=== PATIENT | female | born 1995 | race Hispanic/Latino ===

== ENCOUNTER → 2020-11-05 12:17 | Outpatient (CLI) | payer OTHER, SELFPAY ==
--- NOTE | 2020-11-05 13:08 | DI.US.S_ITS ---
PROCEDURE: US OB LIMITED INDICATIONS: GDM; EFW, GUILHERME OUTSIDE/PRIOR DATING DATA: Last menstrual period (LMP): 02/07/2020. LMP-based estimated date of delivery (KARLA): 11/14/2020. First dating scan (date and location): 11/05/2020 at [facility]. Estimated date of delivery (KARLA) from first dating scan: 11/18/2020. TECHNIQUE: Real-time scanning was performed of the fetus, with image documentation and biometric measurements. Endovaginal scanning: Not performed. COMPARISON: None. FINDINGS: General: A single living intrauterine gestation is present. Presentation: Vertex Placenta: Placental position is right fundal, without previa. Amniotic fluid index: 12.2 cm, normal range is 5-24 cm. Largest pocket 5.4 cm. heart rate: 149 beats per minute. Maternal cervical canal: Not visualized. biometrics: Biparietal diameter: 9.0 cm, 36 weeks 4 days Head circumference: 33.4 cm, 38 weeks 1 day Abdominal circumference: 35.0 cm, 39 weeks 0 days Femur length: 7.6 cm, 38 weeks 5 days Estimated gestational age from LMP: 38 weeks 6 days. Composite gestational age from present scan: 38 weeks 1 day Estimated weight and percentile: 3510 grams, 59th percentile Measurement variability for biometric dating: +/- 7 days from 14 weeks to 15 weeks 6 days gestation, +/- 10 days from 16 weeks to 21 weeks 6 days gestation, +/- 2 weeks from 22 weeks to 27 weeks 6 days gestation, +/- 3 weeks for 28 weeks gestation or later. weight reference: 4500 g or EFW >90/95% is considered macrosomia or large for gestational age. EFW <10% is small for gestational age. EFW 5% or less is considered intra-uterine growth restriction. Other: Not applicable. IMPRESSION: 1. Single live intrauterine . 2. Estimated weight 3510 grams 3. GUILHERME 12.2 cm, largest pocket 5.4 cm. Dictated by: Darrel Martinez M.D. on 11/05/2020 at 15:00 Approved by: Darrel Martinez M.D. on 11/05/2020 at 15:05
--- NOTE | 2020-11-05 14:19 | PM.OBTRLD ---
Visit Information Visit Information Date of evaluation: 11/05/20 Primary OB Provider: Nedra Mckeon Reason for Evaluation: Yes non-stress test non-stress test reason: diabetes Vital Signs Vital Signs: Temperature 36.3? blood pressure 117/64 heart rate 90 PFSH Medical History Asthma Gestational diabetes mellitus (GDM) affecting third (~03/2020) Rash/skin eruption (~2017) Family History Mother No problems noted. Father No problems noted. Grandmother No problems noted. Grandfather No problems noted. Grandmother No problems noted. Grandfather No problems noted. Social History marital status: number of children: 2 household members: spouse and children lives independently: Yes caregiver/support person: No housing: house pets and animals: Yes (2 dogs: safe. 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 ) Type(s) of exercise: walking and normal ROM and activity frequency: daily duration: 15-30 minutes/day Evaluation Evaluation Baseline heart rate: 140 Variability: Moderate (11-25) monitor accelerations: Present Monitor Decelerations: Absent Category of Tracing: Reactive Diagnosis, Plan/Disposition Final Diagnosis (1) 38 weeks gestation of : Status: Acute (2) GDM, class A1: Status: Acute Plan/Disposition Plan: 25-year-old at 38 weeks and 5 days with GDM A1. complicated by late transfer of care. NST reactive today. Ultrasound shows normal-sized fetus as well as normal fluid. She will follow-up in clinic next week. OB Disposition: home
[2020-11-06 13:19] LABS: Strep Grp B PCR NEG for Grp B Strep
== END ==
LOC: LAB 12:17 → LABOR 13:44 → LAB 02-16 00:07
PROVIDERS: PCP Student in an Organized Health Care Education/Training Program; Referring Provider Family Medicine; Visit Provider Family Medicine
DX: O24.410 Gestational diabetes mellitus in pregnancy, diet controlled (principal)
CPT/HCPCS: 59025; 76815; 87653; G0378

== ENCOUNTER 2020-11-08 22:50 | Inpatient (IN) | payer OTHER, SELFPAY ==
[2020-11-08 22:55] VITALS: BP 119/63
[2020-11-09 04:58] LABS: Add Manual Diff / Slide Review NO; Basophils Absolute Auto 0 /uL (0-100); Basophils Percent Auto 0.3 % (0-2); Eosinophils Absolute Auto 100 /uL (0-450); Eosinophils Percent Auto 1.1 % (2-4); Hemoglobin 10.5 g/dL (12.0-16.0); Lymphocytes Absolute Auto 3000 /uL (1100-4500); Lymphocytes Percent Auto 29.3 % (25-40); Mean Corpuscular HGB Conc 31.7 % (30-36); Mean Corpuscular Volume 69.5 fL (80-100); Monocytes Absolute Auto 700 /uL (0-900); Monocytes Percent Auto 6.7 % (3-14); Neutrophils Absolute Auto 6500 /uL (1500-7000); Neutrophils Percent Auto 62.6 % (50-75); Platelet Count 253 X10^3/uL (150-400); Red Blood Cell Count 4.75 X10^6/uL (4.0-5.2); Red Cell Distribution Width 17.4 % (11.6-14.8); White Blood Cell Count 10.4 X10^3/uL (4.5-11.0)
[2020-11-09 05:20] LABS: Anisocytosis 1+; Microcytosis 2+; Polychromasia 1+
[2020-11-09 05:28] LABS: COVID19 - ADMIT (NP swab/PCR) Negative (Negative)
--- NOTE | 2020-11-09 07:40 | P.HPOB_ITS ---
OB HPI Date/Time Date of admission: 11/08/20 Date Patient Seen: 11/09/20 Time Patient Seen: 07:30 History of Present Condition Chief complaint: Leaking : 4 Para: 2 Estimated Date of Delivery: 11/14/20 Estimated Gestational Age (weeks): 39w2d Narrative: Emilie Cooney is a 25 year old at 39 weeks and 2 days gestation. She came in overnight due to possible leaking of fluid however AmniSure was negative. She was monitored over several hours and made cervical change. This morning she can feel contractions though are not particularly painful. She would like an epidural prior to rupture membranes. complicated by transfer of care at 38 weeks as well as diet-controlled gestational diabetes. She had a 6 week lapse in care due to moving and staying with family. She has had a couple elevated fasting sugars after eating pasta or pizza, otherwise sugars have been well controlled without medication. Estimated weight on ultrasound last week was 3510 g which is at the 53rd percentile. OB history: 04/01/16 at 37 wks, 5 hr labor, 8 lb 5 oz male, epidural, [facility]. Insulin dependent GDM, induced for oligo. Did not breast feed due to inverted nipples/tongue tie. Jaswinder Cooney. 11/11/16 SAB at 6 wks 06/28/18 at 39 wks, 5 hr labor, 7 lb 4.016 oz, epidural, [place], [place]. Diet controlled GDM. Did not breast feed. Yulia Bernstein. Indications Indication for induction OB: gestational diabetes (advanced dilation) History of Present care: good care (lapse between 32 and 38 weeks due to moving), initiated at week # (9), number of visits (10) and pounds weight gain (17) Dating criteria: LMP confirmed by 1st trimester US Ultrasounds: normal mid trimester US Obstetrical complications: gestational diabetes Preadmission Labs Blood type: A (+) positive -: Antibody screen: negative, GBS status: negative, HBsAG: negative, HIV: negative and RPR/VDLR: negative HCT: 33 PAP: Normal 1 hr GTT: 141 Evaluation Evaluation Baseline heart rate: 130 Variability: Moderate (11-25) monitor accelerations: Present Monitor Decelerations: Absent Contraction Frequency (minutes): 5 Status: Category l Cervical dilation (cm): 7 Cervical effacement (%): 90 station: -1 [facility] Medical History Asthma Gestational diabetes mellitus (GDM) affecting third (~03/2020) Rash/skin eruption (~2017) Family History Mother No problems noted. Father No problems noted. Grandmother No problems noted. Grandfather No problems noted. Grandmother No problems noted. Grandfather No problems noted. Social History marital status: number of children: 2 household members: spouse and children lives independently: Yes caregiver/support person: No housing: house pets and animals: Yes (2 dogs: safe. 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 ) Type(s) of exercise: walking and normal ROM and activity frequency: daily duration: 15-30 minutes/day Meds Home Medications and Allergies Home Medications Medication Instructions Recorded Confirmed Type prenat.vits,kenya,dze-[id number] 1 tab PO DAILY 11/04/20 11/05/20 History Allergies Allergy/AdvReac Type Severity Reaction Status Date / Time No Known Drug Allergies Allergy Verified 11/04/20 10:04 Exam Vital Signs (past 8 hours): Temperature 35.9? blood pressure 133/79 heart rate 120 Const General: healthy appearing and comfortable [facility] Head: normal to inspection Ears: hearing grossly normal bilaterally Nose: external nose normal Face and sinus: normal facial exam Mouth: oral mucosae normal Eyes General: appearance normal, both eyes and all related structures Neck Neck: normal visual inspection Resp Effort & Inspection: normal respiratory effort Auscultation: clear to auscultation bilaterally Cardio Rate: regular rate Rhythm: regular rhythm Heart Sounds: no murmurs GI Other: Gravid External Female Exam: normal external appearance Manual OB Exam: dilated 7, effaced (90), station -1 and other (bulging bag) Presentation: vertex Estimated Weight (lbs): 8 Back/Spine/Pelvis Back: normal to inspection Skin General: no rashes or lesions noted Extrem General: normal to inspection and no pedal edema Objective Labs Result Diagrams: 11/09/20 03:50 Labs: Laboratory Results - last 24 hr 11/09/20 11/09/20 11/09/20 03:50 03:50 03:50 WBC 10.4 RBC 4.75 Hgb 10.5 L Hct 33.0 L MCV 69.5 L MCH 22.0 L MCHC 31.7 RDW 17.4 H Plt Count 253 Neut % (Auto) 62.6 Lymph % (Auto) 29.3 [place] % (Auto) 6.7 Eos % (Auto) 1.1 L Baso % (Auto) 0.3 Neut # (Auto) 6500 Lymph # (Auto) 3000 [place] # (Auto) 700 Eos # (Auto) 100 Baso # (Auto) 0 RBC Morphology See below Polychromasia 1+ H Anisocytosis 1+ H Microcytosis 2+ H SARS-CoV-2 (PCR) Negative Blood Type A Positive Antibody Screen Negative Assessment and Plan Assessment and Plan Assessment and Plan narrative: 25-year-old at 39 weeks and 2 days with advanced dilation and a bulging bag but not yet in active labor. complicated by diet-controlled gestational diabetes. GBS negative. Patient requests epidural now. Will perform AROM after epidural is adequate. Anticipate vaginal delivery.
[2020-11-09] MEDS: LACTATED RINGERS 1,000 ML 100 ML IV ×2 (07:44→10:12)
[2020-11-09] MEDS: FENT 2MCG/ML BUPIV 0.125% EPI 200 MCG/100 ML PLAST..BAG 6 MCG EPIDURAL (08:10)
--- NOTE | 2020-11-09 08:48 | PM.AN.REGBLK ---
Regional Block Pre-procedure Procedure: Continuous Lumbar Epidural for L&D Attending OB provider: Nedra Mckeon PMH/ROS narrative: at 39+2 term labor, no complications with except GDM, diet controlled, no significant PMH. ASA Class: II Labs: Hct 33.0 % (36-46) L 11/09/20 03:50 Plt Count 253 X10^3/uL (150-400) 11/09/20 03:50 Medications: Current Medications Generic Name Dose Route Start Last Admin Trade Name Freq PRN Reason Stop Dose Admin Carboprost Tromethamine 250 mcg 11/09/20 04:14 Carboprost 250 Mcg/Ml Ampul IM Q90M PRN Bleeding Diphenhydramine HCl 25 mg 11/09/20 08:47 Diphenhydramine 50 Mg/Ml Vial IV Q10M PRN Pruritis Fentanyl 50 mcg 11/09/20 04:14 Fentanyl 100 Mcg/2 Ml Inj IV Q1H PRN Pain, Moderate (4-6) Lactated Ringer's 1,000 mls @ 100 mls/hr 11/09/20 04:15 11/09/20 07:44 Lactated Ringers IV 100 mls/hr CONT AWILDA Administration Oxytocin/Lactated Ringer's 30 unit in 500 mls @ 200 mls/hr 11/09/20 04:14 Oxytocin Premix IV CONT PRN Bleeding Protocol Tranexamic Acid 1,000 mg/ 100 mls @ 200 mls/hr 11/09/20 04:14 Sodium Chloride IV NOW PRN Bleeding FENT 2MCG/ML BUPIV 0.125% EPI 200 mcg in 100 mls @ 6 mls/hr 11/09/20 09:00 Fentanyl/Bupiv/Ns 2mcg/Ml - 0.125% EPIDURAL CONT AWILDA Methylergonovine Maleate 0.2 mg 11/09/20 04:14 Methylergonovine 0.2 Mg Tablet PO Q6HR PRN Heavy Bleeding Methylergonovine Maleate 0.2 mg 11/09/20 04:14 Methylergonovine 0.2 Mg/Ml Vial IM NOW PRN Bleeding Misoprostol 800 mcg 11/09/20 04:14 Misoprostol 200 Mcg Tablet MI NOW PRN Bleeding Misoprostol 1,000 mcg 11/09/20 04:14 Misoprostol 200 Mcg Tablet MI NOW PRN Bleeding Misoprostol 400 mcg 11/09/20 04:14 Misoprostol 200 Mcg Tablet SL NOW PRN Bleeding Oxytocin 10 unit 11/09/20 04:14 Oxytocin 10 Unit/Ml Vial IM NOW PRN Bleeding Allergies: Allergies Allergy/AdvReac Type Severity Reaction Status Date / Time No Known Drug Allergies Allergy Verified 11/04/20 10:04 Procedure Insertion date: 11/09/20 Insertion time: 08:00 Prep/Local: betadine x3 Interspace: L2-3 Patient position: sitting Needle: 18 gauge [employer] (CSE: 27g [place]enc[place] through [employer], clear CSF, 1mL 0.25% bupiv) Loss of resistance with: saline ARNOLDO at (cm): 5 Catheter placed at SKIN (cm): 10 Catheter in SPACE (cm): 5 Insertion: No CSF, No Blood, No Paresthesia with insertion, No Paresthesia with injection and No Test dose reaction Initial Medications TEST DOSE time: 07:58 BOLUS DOSE time: 08:01 BOLUS DOSE (mL): 3 BOLUS DOSE med: other (infusate) Infusion INFUSION: 0.125% bupivacaine and with fentanyl 2 mcg/mL Initial rate (mL/hr): 6 Post-procedure Anesthesia time START: 07:45 Anesthesia time END: 10:39 Post-procedure Anesthesia Assessment: Yes CV function: HR/BP stable, Yes Resp function: RR/sat/airway adequate, Yes Mental status appropriate and No Anesthesia complications
--- NOTE | 2020-11-09 09:01 | PM.OBPNLAB ---
Date/Time Date Patient Seen: 11/09/20 Pain Control Pain control: tolerating well and epidural Pelvic Exam Dilation (cm): 8 Effacement (%): 90 station: -1 Amniotic membrane status: Ruptured (AROM copious clear fluid) Contractions Contraction frequency (min): 5 Status status: Category l Heart Rate Baseline: 130 Monitor Accelerations: Present Monitor Decelerations: Absent Monitor Variability: Moderate Assessment and Plan Assessment: active labor Plan: continuous present management Comments: AROM with copious clear fluid. Comfortable witih epidural. Anticipate .
--- NOTE | 2020-11-09 10:58 | PM.OBPRVD ---
Events: Gestational Diabetes Labor & Delivery Delivery date: 11/09/20 Delivery augmentation: rupture of membranes Delivery monitor: external FHT Route of delivery: L&D Laceration Description: None Estimated blood loss (mL): 100 Anesthesia Type: Epidural Narrative: 25-year-old at 39 weeks and 2 days gestation. KARLA 11/14/28. Patient presented to the center with leaking of fluid however was AmniSure negative. She was dieudonne though not painfully but with advanced dilation. The decision was made to admit. She received an epidural with excellent pain control. Artificial rupture membranes occurred at 8:55 a.m. with production of copious clear fluid. heart tones were category 1 throughout stage I. Patient was complete at 10:25 a.m.. She pushed over three contractions and went on to deliver a vigorous female infant at 10:39 a.m.. was vertex and KOKO. She was immediately placed on mother's abdomen. Cord was clamped and cut after 1 minute delay. Apgars were 8 and 9. No resuscitation of the required beyond the usual drying and stimulating. Placenta delivered at 10:44 a.m. after active management and appeared intact with a three-vessel cord. Pitocin bolus given after delivery of placenta. Uterine fundus was firm below umbilicus. There were no tears. EBL 100 mL. Both mother and baby doing well. [place] Baby 1: Infant gender: Female Presentation: vertex Position: Left Occiput Anterior Placenta delivery description: Spontaneous Cord Vessel Description: 3 Vessels score (1 min): 8 score (5 min): 9 Plan for aftercare: Routine care
[2020-11-09] MEDS: OXYTOCIN PREMIX 30 UNIT/500 ML PLAST..BAG 200 UNIT IV (12:40)
[2020-11-09] MEDS: ACETAMINOPHEN 325 MG TABLET 650 MG PO ×2 (12:42→18:54)
[2020-11-09] MEDS: IBUPROFEN 600 MG TABLET PO ×2 (12:42→18:54)
--- NOTE | 2020-11-10 07:47 | PM.OBDS.1 ---
Discharge Providers Provider Date of admission: 11/08/20 22:50 Discharge Date: 11/10/20 Primary care physician: Hitesh Vazquez MD Consults: 11/10/20 11:01 Consult to Transportation Associate Routine Comment: Discharge provider: DO Amisha Ward Hospital Course Date Patient Seen: 11/10/20 Time Patient Seen: 07:30 Diagnoses: 39 weeks of Spontaneous vaginal delivery Gestational diabetes Hospital Course: Patient is a 25-year-old now 3 after uncomplicated spontaneous vaginal delivery on 11/09/20 at 39 weeks 2 days gestation. She presented in labor and received an epidural for pain control. Delivery was uncomplicated without lacerations. No issues in the . Patient wished to formula feed. course uncomplicated. Patient was ambulating, voiding, and stooling. Vaginal bleeding was light and pain controlled with ibuprofen. Advised patient to call for fevers, severe pain or bleeding through more than a pad an hour. Follow up in clinic in 6 weeks for visit. Will need 2 hour GTT at that time. [place] 1: Gender: Female Disposition of : home Status at Discharge Cognitive/behavioral status at discharge: at baseline, oriented Functional status at discharge: independent ambulation Overall status at discharge: patient is back to baseline Time Spent with Patient Time attestation: Total time spent providing and/or coordinating discharge services: Time spent: Less than 30 minutes Objective Labs Result Diagrams: 11/09/20 03:50 Exam Vital Signs (past 8 hours): Temperature 98.6 blood pressure 95/57 heart rate 77 respirations 16 General: Awake and alert, no acute distress. HEENT: NCAT, EOMI, moist oral mucosa CV: Regular rate and rhythm, no murmurs, rubs or gallops Lungs: CTAB, no wheezes, rales, or rhonchi Abdomen: Soft, nontender; bowel tones active; uterus firm 1 cm below umbilicus Extremities: Warm, no edema, 2+ pedal pulses bilaterally Discharge Plan Discharge Plan Patient Disposition: Home Discharge orders & Medications Prescriptions: New docusate sodium [DOK] 100 mg Capsule 100 mg PO DAILY Qty: 30 RF: 0 ibuprofen 600 mg Tablet 600 mg PO Q6HR PRN (Reason: Pain, Mild (1-3)) Qty: 30 RF: 0 Continued prenat.vits,kenya,iho-iarp-lcbsu Tablet 1 tab PO DAILY RF: 0 Follow up/Referrals: Hitesh Vazquez DO [Primary Care Provider] - Nedra Mckeon DO [Physician] - 12/21/20 9:30 am (heck in 15 minutes prior to appointment. Call MD with any questions or concerns) Visit Report/Discharge Packet Stand Alone Forms: Discharge: Care Visit Report Forms: Patient Portal/API, Stroke Signs & Symptoms Discharge Data Primary Care Provider: Hitehs Vazquez Discharges patient from system. Discharge Date/Time: 11/10/20 10:40
[2020-11-10 08:12] VITALS: BP 119/63; PULSE 80; RESP 18; TEMP 37
== END 2020-11-10 10:40 | disposition home or self-care (01) | DRG 807 ==
PROVIDERS: Admitting Provider Family Medicine; PCP Student in an Organized Health Care Education/Training Program; Referring Provider Family Medicine; Visit Provider Family Medicine
DX: O24.420 Gestational diabetes mellitus in childbirth, diet controlled (principal); Z37.0 Single live birth; Z3A.39 39 weeks gestation of pregnancy; Z20.822 Contact with and (suspected) exposure to COVID-19
CPT/HCPCS: 01967; 36415; 59050; 59410; 84112; 85025; 86850; 86900; 86901; 87635; C9803; G0379; J2590

== ENCOUNTER → 2022-06-07 11:57 | Outpatient (CLI) | payer OTHER, SELFPAY ==
[2022-06-07 12:55] LABS: Add Manual Diff / Slide Review NO; Basophils Absolute Auto 0 /uL (0-100); Basophils Percent Auto 0.3 % (0-2); Eosinophils Absolute Auto 100 /uL (0-450); Eosinophils Percent Auto 1.9 % (2-4); Hematocrit 32.5 % (36-46); Hemoglobin 10.4 g/dL (12.0-16.0); Lymphocytes Absolute Auto 1600 /uL (1100-4500); Lymphocytes Percent Auto 21.5 % (25-40); Mean Corpuscular Hemoglobin 21.5 PG (26-34); Mean Corpuscular Volume 67.1 fL (80-100); Monocytes Absolute Auto 400 /uL (0-900); Monocytes Percent Auto 5.7 % (3-14); Neutrophils Absolute Auto 5400 /uL (1500-7000); Neutrophils Percent Auto 70.6 % (50-75); Platelet Count 249 X10^3/uL (150-400); Red Blood Cell Count 4.85 X10^6/uL (4.0-5.2); Red Cell Distribution Width 16.9 % (11.6-14.8); White Blood Cell Count 7.7 X10^3/uL (4.5-11.0)
[2022-06-07 13:23] LABS: Anisocytosis 2+
[2022-06-07 13:39] LABS: Hepatitis B Surface Antigen NEGATIVE s/c (NEGATIVE); Rubella Antibody IgG 5.6 IU/mL (>15)
[2022-06-07 13:54] LABS: HIV 1 & 2 Ab/Ag 4th Gen Combo NEGATIVE (NEGATIVE); Hep C Virus Ab w/Reflex Quant NEGATIVE s/c (NEGATIVE)
[2022-06-08 07:34] LABS: Varicella IgG Antibody <135 index (Immune >165)
[2022-06-08 08:10] LABS: RPR Screen Non Reactive (Non Reactive)
== END ==
PROVIDERS: PCP Student in an Organized Health Care Education/Training Program; Referring Provider Obstetrics & Gynecology; Visit Provider Obstetrics & Gynecology
DX: Z34.90 Encounter for supervision of normal pregnancy, unspecified, unspecified trimester (principal)
CPT/HCPCS: 36415; 85025; 86592; 86762; 86787; 86803; 86850; 86900; 86901; 87086; 87340; 87389

== ENCOUNTER → 2022-07-06 14:23 | Outpatient (CLI) | payer OTHER, SELFPAY ==
[2022-07-06 19:59] LABS: Urine N gonorrhoeae NOT DETECTED
[2022-07-06 20:14] LABS: Urine Chlamydia NOT DETECTED
== END ==
PROVIDERS: PCP Student in an Organized Health Care Education/Training Program; Visit Provider Obstetrics & Gynecology
DX: Z36.89 Encounter for other specified antenatal screening (principal); Z3A.18 18 weeks gestation of pregnancy
CPT/HCPCS: 87491; 87591

== ENCOUNTER → 2022-07-27 13:13 | Outpatient (CLI) | payer OTHER, SELFPAY ==
--- NOTE | 2022-07-27 13:15 | DI.US.S_ITS ---
PROCEDURE: US OB >= 14 WEEKS FETUS INDICATIONS: ANATOMY OUTSIDE/PRIOR DATING DATA: Last menstrual period (LMP): 02/28/2022. LMP-based estimated date of delivery (KARLA): 12/05/2022. First dating scan (date and location): 06/07/2022. Estimated date of delivery (KARLA) from first dating scan: 12/03/2022. The calculations are made using the working KARLA of 12/05/2022. TECHNIQUE: Real-time scanning was performed of the fetus, with image documentation and biometric measurements. Endovaginal scanning: Not performed COMPARISON: None. FINDINGS: General: A single living intrauterine gestation is present. Presentation: Breech. Placenta: Placental position is posterior , without previa. Amniotic fluid index: 2.8 cm, normal range is 5-24 cm. Single deepest vertical pocket is 5.6 cm. heart rate: 133 beats per minute. Maternal cervical canal: 5.6 cm long. Normal lower limit is 2.5 cm. biometrics: Biparietal diameter: 4.9 cm, 20 weeks 6 days Head circumference: 18.6 cm, 21 weeks 0 days Abdominal circumference: 16.1 cm, 21 weeks 1 day Femur length: 3.6 cm, 21 weeks 2 days Clinically estimated gestational age: 21 weeks 2 days Composite gestational age from present scan: 21 weeks 1 day Estimated weight and percentile: 405 g, 39th percentile Anatomic survey: Neuro: Ventricles are non-dilated at less than 10 mm. Cisterna magna is normal at 3-11 mm. Cerebellum is normal in size and morphology. Nuchal skin fold: Normal at less than 6 mm between 14-21 weeks gestational age. Nuchal fold measurement is 6 mm. Face: Nose and lips, facial profile are normal. Spine: No evidence for spina bifida. Heart: 4-chambered heart is present, with normal ventricular outflow tracts. Diaphragm: Diaphragm is intact. Stomach: Left-sided stomach is present. Kidneys: No hydronephrosis. Normal is less than 5 mm in 2nd trimester, less than 7 mm in 3rd trimester. Cord: 3-vessel cord has orthotopic insertion. Bladder: Normal in size. Extremities: All 4 extremities identified. IMPRESSION: 1. Living 2nd trimester intrauterine . Current ultrasound age correlates with clinical age based on LMP. 2. There is a 6 mm nuchal fold measurement which is upper limits of normal. This serves as a soft marker for Down syndrome. Recommend correlation with maternal alpha fetoprotein and other potential markers. Of note, there are no other findings on this study which suggest findings consistent with Down syndrome. 3. Otherwise unremarkable 2nd trimester anatomy screening ultrasound. We strive to produce accurate, complete, and clear reports of imaging services. To assist us in improving patient care, this report was composed using standard report templates and voice recognition software. Therefore, it may contain abnormal punctuation, insertions and/or omissions. Occasional wrong-word or sound-alike substitutions may occur. Though we review the report and make efforts to correct it, we do recommend that the report be read carefully in proper context to recognize any text inaccuracies. Dictated by: Prince Hernandez M.D. on 07/27/2022 at 16:08 Approved by: Prince Hernandez M.D. on 07/27/2022 at 16:22
== END ==
PROVIDERS: PCP Student in an Organized Health Care Education/Training Program; Referring Provider Obstetrics & Gynecology; Visit Provider Obstetrics & Gynecology
DX: Z34.82 Encounter for supervision of other normal pregnancy, second trimester (principal); Z3A.21 21 weeks gestation of pregnancy
CPT/HCPCS: 76811

== ENCOUNTER → 2022-09-02 14:03 | Outpatient (CLI) | payer OTHER, SELFPAY ==
[2022-09-02 14:35] LABS: Hematocrit 34.6 % (36-46); Hemoglobin 11.6 g/dL (12.0-16.0)
== END ==
PROVIDERS: PCP Student in an Organized Health Care Education/Training Program; Referring Provider Obstetrics & Gynecology; Visit Provider Obstetrics & Gynecology
DX: Z34.82 Encounter for supervision of other normal pregnancy, second trimester (principal); Z3A.26 26 weeks gestation of pregnancy
CPT/HCPCS: 36415; 85014; 85018

== ENCOUNTER → 2022-09-19 16:12 | Outpatient (CLI) | payer OTHER, SELFPAY | PROVIDERS: PCP Student in an Organized Health Care Education/Training Program; Visit Provider Obstetrics & Gynecology | DX: Z34.90 Encounter for supervision of normal pregnancy, unspecified, unspecified trimester (principal); Z3A.29 29 weeks gestation of pregnancy | CPT/HCPCS: 87086 ==

== ENCOUNTER 2022-11-13 00:42 | Inpatient (IN) | payer OTHER, SELFPAY ==
[2022-11-13 03:24] VITALS: BP 112/68
[2022-11-13 04:18] LABS: Basophils Absolute Auto 100 /uL (0-100); Basophils Percent Auto 0.7 % (0-2); Eosinophils Absolute Auto 200 /uL (0-450); Eosinophils Percent Auto 1.3 % (2-4); Hematocrit 34.7 % (36-46); Hemoglobin 11.1 g/dL (12.0-16.0); Lymphocytes Absolute Auto 4100 /uL (1100-4500); Lymphocytes Percent Auto 28.1 % (25-40); Mean Corpuscular Hemoglobin 22.3 PG (26-34); Mean Corpuscular Volume 69.9 fL (80-100); Monocytes Absolute Auto 900 /uL (0-900); Neutrophils Absolute Auto 9400 /uL (1500-7000); Neutrophils Percent Auto 63.9 % (50-75); Platelet Count 357 X10^3/uL (150-400); Red Blood Cell Count 4.97 X10^6/uL (4.0-5.2); White Blood Cell Count 14.7 X10^3/uL (4.5-11.0)
[2022-11-13 04:19] LABS: Add Manual Diff / Slide Review SLIDE REVIEW
[2022-11-13] MEDS: LACTATED RINGERS 1,000 ML 100 ML IV (04:38)
[2022-11-13 06:00] LABS: Anisocytosis 2+; Microcytosis 3+
[2022-11-13 06:11] LABS: Strep Grp B PCR NEG for Grp B Strep
--- NOTE | 2022-11-13 15:07 | P.PCN_ITS ---
Called at 1915 epidural level low. Bolus with 5 ml clinician bolus and patient comfortable. 0115 called for patient uncomfortable, gave bolus dose of 5 ml of infusion then lidocaine 2% MPF 5 ml with no pain relief. Plan: replace epidural catheter. 0156 Patient sitting, 0157 prep with chloraprep and allowed to dry. 0203 local at L3-4. 0205 catheter threaded after good ARNOLDO at cm again. 0207 test dose negative, catheter secured with sterile tegaderm and tape. Patient positioned and clinician bolus of 5 ml given at 0210 and infusion started at 0211. 0230 3 ml bolus with patient on her right side. 0255 catheter that was threaded 6 cm pulled back 2 cm. Viable baby delivered at 0311. Peripheral Nerve Block Note Pre-Procedure Reason for block: Attending surgeon request/order for post-op pain management (Labor epidural) Pre-procedure checklist: Patient examined and chart reviewed, Risks, benefits, alternatives of block discussed, questions answered, Verification of anti- coagulation status, Site confirmed, Timeout performed and Standard ASA monitors applied Consent obtained from: Patient Procedure Date of procedure: 11/13/22 Start Time: 13:49 End Time: 14:21 Performed by: Kenna Flores Location: Other (Labor room 5) Position: Sitting (Sitting at side of bed and held by her spouse) Sterile Technique: Sterile barrier maintained, Sterile gloves, Mask, Sterile drapes and Chloraprep Skin Wheal: Lidocaine 1% (L4-5 and L2-3 5 ml at lower site and 3 ml at upper site.) mL: 8 Gauge: 27 Equipment Single injection - Needle brand, gauge, length: 18g [employer] Epidural needle 8.9cm Medications Medications - enter concentration (%) & mL in comment field: Bupivacaine (100 ml inusion bag started with 17 ml to flush the line. Bupivicaine 0.1% with fentanyl 2mcg/ml) and Lidocaine (2% 3 ml for bolus dose with fentanyl 100 mcg total 5 ml at 1414) Test Dose: Negative (Lidocaine 1.5% with epinephrine 1:200,000) Incremental aspiration prior to injection: Yes (Negative for CSF or blood) Vital signs VS: VS noted on anesthesia record. 1349 Sterile prep, 1355 local, 1357 procedure started, 1400 more local at first site, 1405 local at L3-4, 1407 ARNOLDO and catheter placed, 1408 test dose, 1414 bolus, 1421 infusion started. Events Nerve Block Events: Multiple attempts required (Patient very anxious and when I touched her skin she would flinch and jump, and at first was unable to hold still. Attempted at L4-5 and redirected times one and patient compained of right sided pain both times, second time had blood in syringe at 5 cm deep. ) and Other (Procedure second attempt at L3-4 easy times one with good ARNOLDO at 6 cm and catheter threaded easily 6 cm and needle removed intact. Negative for aspiration of CSF or blood. Test dose negative. Secured with sterile dressing and tape. Bolus dose at 1414 and infusion pump started 1421. )
--- NOTE | 2022-11-13 16:15 | PM.OBHP.IH.1 ---
OB HPI Date/Time Date of admission: 11/13/22 Date Patient Seen: 11/13/22 Time Patient Seen: 16:15 History of Present Condition Chief complaint: contractions KARLA Calculator Estimated Delivery Date Method Current WG Current Estimate 12/05/22 LMP (Certain) 36w 6d Other Estimates 12/03/22 Ultrasound #1 37w 1d Estimated Gestational Age (weeks): 36+6 : 5 Para: 3 care: good care, initiated at week # (10), number of visits (9) and pounds weight gain (10) Dating criteria OB: LMP confirmed by 1st trimester US Ultrasounds: normal 1st trimester US and abnormal US findings (Increased nuchal fold) Abnormal ultrasound findings: MFM referral, repeat U/S with increased nuchal fold as well Obstetrical complications: other (Checking BS's, no elevated values) Medical complications OB: none Preadmission Labs Last OB Lab Results: Blood Type A Positive 11/13/22 04:00 Antibody Screen Negative 11/13/22 04:00 Hematocrit 34.7 % (36-46) L 11/13/22 04:00 Hemoglobin 11.1 g/dL (12.0-16.0) L 11/13/22 04:00 Hepatitis B Surface Antigen Negative s/c (NEGATIVE) 06/07/22 12:05 Hepatitis C Antibody Negative s/c (NEGATIVE) 06/07/22 12:05 Rubella Antibody 5.6 IU/mL (>15) L 06/07/22 12:05 Varicella-Zoster IgG Antibody <135 index (Immune >165) L 06/07/22 12:05 Group B Streptococcus (PCR) Neg for grp b strep 11/13/22 04:45 -: Chlamydia screen: negative, Gonorrhea screen: negative and Urine: negative -: PAP smear: Normal (2020) External Labs -: Urine: negative Prior (ies) Past Pregnancies Del. Date GA/Weeks Labor Lgth Wt Sex Route Outcome Anesthesia Place Delv Breastfeed Preg Comp Name 04/01/16 37 5 8 lb 5 oz Male vaginal live - full term epidural [facility] 2d.Inverted nipples/tongue-tie gestational diabetes Jaswinder Cooney 11/11/16 6 spontaneous 06/28/18 39 5 7 lb 4.016 oz Female vaginal live - full term epidural [facility] [place], [place] None. gestational diabetes Yulia Day 11/09/20 39+2 2 8 lb 8.2 oz Female vaginal live - full term [facility] [place] 2 weeks gestational diabetes Sol Delivery Date: 04/01/16 Last Updated by: Rae Hurtado R.N. GDM, insulin-dependent. Induction for oligohydramnios. Delivery Date: 06/28/18 Last Updated by: Rae Hurtado R.N. GDM. Diet-controlled. Induced for GDM, no issues. Evaluation Evaluation Baseline heart rate: 135 Variability: Moderate (11-25) monitor accelerations: Present Monitor Decelerations: Absent Contraction Frequency (minutes): 10 Uterine Contraction Intensity: Moderate Status: Category l Dilation (cm): 7.5 Effacement (%): 80 station: -1 Position of cervix: mid Consistency: soft [facility] Medical History (Updated 08/02/22 @ 13:56 by Carmen Hakwins MD) Asthma Gestational diabetes mellitus (GDM) affecting third (~03/2020) Rash/skin eruption (~2017) Surgical History (Updated 05/24/22 @ 14:11 by Inge Flores RN) No pertinent past surgical history Family History (Updated 05/24/22 @ 14:17 by Inge Flores RN) Mother Ovarian cyst Tachycardia Coagulopathy Father Stomach problems Gastric ulcer Family estrangement Grandmother Arthritis Grandfather Spine degeneration Hypertension Grandmother No problems noted. Grandfather No problems noted. Social History marital status: number of children: 2 household members: spouse and children lives independently: Yes caregiver/support person: Yes housing: house pets and animals: Yes (2 dogs: safe. ) education level: vocational occupational status: previously employed current occupational exposures/hazards: No special nara needs: No travel history: over 6 months ago seatbelt use: always water heater temp set < 120 deg: Yes working smoke detector in home: Yes fire extinguisher in home: Yes carbon monox detector in home: Yes firearms in home: No do you feel safe at home: Yes Smoking Status: Never smoker second hand exposure: No alcohol intake: former substance use type: does not use during the past year weight has: remained stable well-balanced diet: rarely or never daily servings fruits/ve-1 caffeine: Yes (Coffee - 1 cup rarely. ) Type(s) of exercise: walking and normal ROM and activity frequency: daily duration: 15-30 minutes/day Meds Home Medications and Allergies Home Medications Medication Instructions Recorded Confirmed Type prenat.vits,kenya,whl-[id number] 1 tab PO DAILY 11/04/20 11/13/22 History blood sugar diagnostic (Blood #120 ea 06/07/22 11/07/22 Rx Glucose Test strips) blood-glucose meter (Blood Glucose #1 ea 06/07/22 11/07/22 Rx Monitoring kit) lancets #120 ea 06/07/22 11/07/22 Rx ferrous sulfate 325 mg (65 mg 325 mg PO DAILY #30 tabs 07/06/22 11/07/22 Rx iron) tablet (Feosol) Allergies Allergy/AdvReac Type Severity Reaction Status Date / Time No Known Drug Allergies Allergy Verified 11/13/22 03:23 OB Exam Narrative Exam Narrative: Generally: Patient is sitting up in bed, comfortable with epidural, no acute distress Fundal height: 37 cm Estimated weight: 6-1/2 lb - 7lbs Extremities: No edema Objective Labs 11/13/22 04:00 Labs: Laboratory Results - last 24 hr 11/13/22 11/13/22 11/13/22 04:00 04:00 04:45 WBC 14.7 H RBC 4.97 Hgb 11.1 L Hct 34.7 L MCV 69.9 L MCH 22.3 L MCHC 32.0 RDW 18.0 H Plt Count 357 Neut % (Auto) 63.9 Lymph % (Auto) 28.1 [place] % (Auto) 6.0 Eos % (Auto) 1.3 L Baso % (Auto) 0.7 Neut # (Auto) 9400 H Lymph # (Auto) 4100 [place] # (Auto) 900 Eos # (Auto) 200 Baso # (Auto) 100 RBC Morphology See below Anisocytosis 2+ H Microcytosis 3+ H Group B Strep (PCR) Neg for grp b strep Blood Type A Positive Antibody Screen Negative Assessment and Plan Assessment and Plan Assessment and Plan narrative: Assessment: 27-year-old 5 para 3 at 36-,6/7 weeks gestation status post spontaneous rupture of membranes several hours ago Comfortable with epidural Contractions have spaced out Plan: Begin Pitocin augmentation Expected management to spontaneous vaginal delivery Pediatrics notified Time Spent with Patient Total time spent with greater than 50% in coordination of care (as documented) at patient's floor/unit and/or counseling patient:: 15-24 minutes
[2022-11-13] MEDS: OXYTOCIN PREMIX 30 UNIT/500 ML PLAST..BAG IV (16:49)
--- NOTE | 2022-11-13 17:53 | PM.OBPNLAB ---
Date/Time Date Patient Seen: 11/13/22 Time Patient Seen: 17:53 Pain Control Pain control: epidural Pelvic Exam Dilation (cm): 7.5 Effacement (%): 80 station: -1 Amniotic membrane status: Ruptured Contractions Monitor mode: External Pitocin rate (mU/min): 6 Contraction frequency (min): 8 Contraction duration (min): 1 Contraction intensity: Moderate Status status: Category l Heart Rate Baseline: 130 Monitor Accelerations: Present Monitor Decelerations: Absent Monitor Variability: Moderate Assessment and Plan Assessment: active labor Comments: Continue to increase Pitocin until contractions every 2-3 minutes Expectant management to
--- NOTE | 2022-11-13 20:09 | PM.OBPNLAB ---
Date/Time Date Patient Seen: 11/13/22 Time Patient Seen: 20:09 Pain Control Pain control: epidural Comments: Just received a bolus Pelvic Exam Dilation (cm): 9 Effacement (%): 80 station: 0 Amniotic membrane status: Ruptured Contractions Monitor mode: External Pitocin rate (mU/min): 10 Contraction frequency (min): 4 Contraction duration (min): 1 Contraction intensity: Moderate Status status: Category l Monitor Accelerations: Present Monitor Decelerations: Absent Monitor Variability: Moderate Assessment and Plan Assessment: active labor Comments: Continue to increase Pitocin to get contractions 2-3 min apart
--- NOTE | 2022-11-13 21:31 | PM.OBPNLAB ---
Date/Time Date Patient Seen: 11/13/22 Time Patient Seen: 21:32 Pain Control Pain control: epidural Pelvic Exam Dilation (cm): 8 Effacement (%): 80 station: 0 Amniotic membrane status: Ruptured Contractions Monitor mode: External Pitocin rate (mU/min): 12 Contraction frequency (min): 4 Contraction duration (min): 1 Contraction intensity: Moderate Intrauterine tone measurement: 50 Status status: Category l Heart Rate Baseline: 140 Monitor Accelerations: Present Monitor Decelerations: Absent Monitor Variability: Moderate Assessment and Plan Assessment: active labor Comments: IUPC readjusted Expectant management to
--- NOTE | 2022-11-13 22:10 | PM.OBPNLAB ---
Date/Time Date Patient Seen: 11/13/22 Time Patient Seen: 22:10 Pain Control Pain control: epidural Pelvic Exam Dilation (cm): 9 Effacement (%): 80 station: 0 Amniotic membrane status: Ruptured Contractions Monitor mode: External Pitocin rate (mU/min): 14 Contraction frequency (min): 4 Contraction duration (min): 1 Contraction intensity: Moderate Intrauterine tone measurement: 50 Status status: Category l Heart Rate Baseline: 145 Monitor Accelerations: Present Monitor Decelerations: Absent Monitor Variability: Moderate Assessment and Plan Assessment: active labor Comments: IUPC readjusted Expectant management to Peds present
[2022-11-13] MEDS: FENT 2MCG/ML BUPIV 0.1% EPI 200 MCG/100 ML PLAST..BAG 6 MCG EPIDURAL (23:45)
--- NOTE | 2022-11-14 03:20 | PM.OBPRVD ---
Events: Labor < 37 wks Labor & Delivery Delivery date: 11/14/22 Intrapartal Events: Prolonged Labor > 20 hours Cervical ripening method: none Induction method: none Delivery augmentation: pitocin Delivery monitor: external FHT, external uterine and internal uterine Route of delivery: Episiotomy description: None L&D Laceration Description: None Quantitative Blood Loss: 75 Anesthesia Type: Epidural Complications: None Narrative: Patient complete and pushed with 1 contraction. At 3:11 a.m., a live female delivered spontaneously over an intact perineum. A loose nuchal cord x1 was reduced on the perineum. The remainder of the body delivered without difficulty and was placed on mom's abdomen. Pitocin was given in the IV fluids. The cord was double clamped and cut after it stopped pulsing. The placenta delivered intact with a three-vessel cord at 3:16 a.m.. The fundus was massaged to firm. No lacerations noted. Apgars 8 at 1 minute and 9 at 5 minutes. Weight 7 lb 2.9 oz. bottle feeding. Mom and stable to recovery. Baby 1: gender: Female Presentation: vertex Position: Left Occiput Anterior Placenta delivery description: Spontaneous Cord Vessel Description: 3 Vessels, Nuchal Cord (x 1), Loose and Clamped/Cut (after cord stopped pulsing) score (1 min): 8 score (5 min): 9 weight: 7 lb 2.9 oz Plan for aftercare: Routine care
[2022-11-14] MEDS: IBUPROFEN 600 MG TABLET PO ×3 (06:42→23:17)
--- NOTE | 2022-11-14 17:08 | PM.OBPN.1 ---
Subjective - OB Subjective Patient comments: no complaints [place] baby status: doing well and bottle feeding well [place] feeding status: exclusively bottle feeding Date Patient Seen: 11/14/22 Time Patient Seen: 17:09 Interval history: Mom is doing well. Bleeding is tapering. Pain is well controlled. Baby is bottle feeding. Exam Narrative Exam Narrative: Generally: Patient is sitting up in bed, holding , no acute distress Fundus: Firm at U -2 Extremities: Trace edema, negative Homans Objective Labs 11/13/22 04:00 Assessment & Plan Plan day: 0 plan OB: routine care Time Spent With Patient Time: Total time spent is greater than 50% in coordination of care (as documented) at patient's floor/unit and/or counseling patient: Time with patient: less than 15 minutes
[2022-11-15] MEDS: IBUPROFEN 600 MG TABLET PO (05:34)
[2022-11-15 07:01] LABS: Hematocrit 29.2 % (36-46); Hemoglobin 9.6 g/dL (12.0-16.0)
[2022-11-15] MEDS: DOCUSATE 100 MG CAPSULE PO (08:38)
[2022-11-15] MEDS: PRENATAL VIT,CALC/IRON/FOLIC 1 TABLET 1 TAB PO (08:39)
[2022-11-15 14:08] VITALS: BP 116/68; PULSE 74; RESP 14; TEMP 36.6
[2022-11-15] MEDS: MEASLES,MUMPS,RUBELLA VACC/PF 0.5 ML VIAL SUBCUT (15:27)
--- NOTE | 2022-11-21 11:34 | PM.OBDS.1 ---
Discharge Providers Provider Date of admission: 11/13/22 00:42 Discharge Date: 11/15/22 Primary care physician: Hitesh Vazquez MD Consults: 11/13/22 03:00 Consult to Anesthesiology Urgent Comment: Consulting Provider: Anesthesiologist Reason for consultation: Epidural 11/15/22 03:20 Consult to Clinical Case Manager Routine Comment: Discharge provider: Carmen Hawkins MD Summary Hospital Course Date Patient Seen: 11/15/22 Time Patient Seen: 07:45 Diagnoses: 36 and 6 weeks' gestation Prolonged rupture of membranes Spontaneous vaginal delivery labor Epidural analgesia Hospital Course: Patient is a 27-year-old 5 para 4 who presented on November 13, 2022 in labor. She had a spontaneous rupture of membranes. She received an epidural for pain management. She had a very slow active phase of labor. She received an intrauterine pressure catheter to assess contractions. On November 14, 2022 she had a spontaneous vaginal delivery without complication. Her course was unremarkable. She was discharged home on November 15, 2022. Peripartum Data Delivery Method: Natural Vaginal Laceration Description: None Episiotomy description: None Procedures: Pitocin augmentation of labor Intrauterine pressure catheter placement IV antibiotics Epidural analgesia Spontaneous vaginal delivery complications: none [place]: Gender: Female Disposition of : home Status at Discharge Cognitive/behavioral status at discharge: oriented Functional status at discharge: independent ambulation Overall status at discharge: patient is progressing back to baseline Time Spent with Patient Time attestation: Total time spent providing and/or coordinating discharge services: Time spent: Less than 30 minutes Objective Labs 11/15/22 06:38 Exam Narrative Exam Narrative: Generally: Patient is sitting up in bed, no acute distress Fundus: Firm at U-2 Extremities: No edema, negative Homans Discharge Plan Discharge Plan Patient Disposition: Home Provider Discharge Comment: Call with fever, chills, or bleeding vaginally more than a pad in an hour Discharge orders & Medications Prescriptions: Continued prenat.vits,kenya,[id number] Tablet 1 tab PO DAILY Discontinued ferrous sulfate [Feosol] 325 mg (65 mg iron) tablet 325 mg PO DAILY Qty: 30 3RF No Action (DME) Blood Glucose Test Strip See Rx Instructions .ROUTE .MEDSUPPLY Qty: 120 3RF Rx Instructions: Testing blood sugars fasting and 2 hr PP (DME) lancets Misc See Rx Instructions .ROUTE .MEDSUPPLY Qty: 120 3RF Rx Instructions: Testing blood sugars fasting and 2 hr PP (DME) blood-glucose meter [Blood Glucose Monitoring] Kit See Rx Instructions .ROUTE .MEDSUPPLY Qty: 1 0RF Rx Instructions: To use with testing fasting and 2 hr PP blood sugars Follow up/Referrals: Carmen Hawkins MD [Physician] - 12/27/22 9:00 am Diet/Activity/Treatments Diet: Regular Activity: Nothing in the vagina for 6 weeks Skin/Wound/Dressing Care Report to your healthcare provider any signs of infection, such as:: chills, fever, increased pain and unusual drainage Visit Report/Discharge Packet Instructions: DI for Labor and Delivery, Vaginal Stand Alone Forms: Patient Portal/API, Stroke Signs & Symptoms Discharge Data Primary Care Provider: Hitesh Vazquez Discharges patient from system. Discharge Date/Time: 11/15/22 17:00
== END 2022-11-15 17:00 | disposition home or self-care (01) | DRG 805 ==
PROVIDERS: Obstetrics & Gynecology; Admitting Provider Specialist; PCP Student in an Organized Health Care Education/Training Program; Referring Provider Specialist; Visit Provider Specialist
DX: O42.12 Full-term premature rupture of membranes, onset of labor more than 24 hours following rupture (principal); O60.14X0 Preterm labor third trimester with preterm delivery third trimester, not applicable or unspecified; Z37.0 Single live birth; Z3A.36 36 weeks gestation of pregnancy
CPT/HCPCS: 36415; 59025; 59050; 59400; 85014; 85018; 85025; 86850; 86900; 86901; 87081; 87653; 96360; G0379; J2590